=== PATIENT | female | born 2000 | race American Indian/Alaskan Native ===

== ENCOUNTER 2021-01-20 13:28 | Outpatient (CLI) | payer MEDICAID ==
[2021-01-20 14:17] LABS: Bacteria,Urine 2+ /HPF (Negative); Bilirubin,Urine NEG (Negative); Blood,Urine NEG (Negative); Color,Urine Amber (Yellow); Mucus,Urine 2+ /HPF
[2021-01-20] MEDS ORDERED: LACTATED RINGERS 1,000 ML IV ONE (14:54)
[2021-01-20 15:29] VITALS: BP 123/82
[2021-01-20] MEDS ORDERED: LIDOCAINE-MPF (1%) 10 MG/1 ML VIAL 5 ML INFILTRATI ONE (16:40)
== END 2021-01-20 16:23 | disposition home or self-care (01) ==
LOC: TRG 13:28 → APU 13:28 → TRG 16:23
PROVIDERS: ATTEND Obstetrics & Gynecology
DX: O26.893 Other specified pregnancy related conditions, third trimester (principal); R10.30 Lower abdominal pain, unspecified; O47.03 False labor before 37 completed weeks of gestation, third trimester; Z3A.33 33 weeks gestation of pregnancy
CPT/HCPCS: 59025; 81001; 87086; 96372; J0696

== ENCOUNTER 2021-03-04 22:01 | Inpatient (IN) | payer MEDICAID ==
[2021-03-04] MEDS ORDERED: fentaNYL 100 MCG/2 ML INJ IV PRN (23:41)
[2021-03-04] MEDS ORDERED: MINERAL OIL 30 ML ORAL LIQD PO PRN (23:41)
[2021-03-04] MEDS ORDERED: ONDANSETRON 4 MG/2 ML INJ IV PRN (23:41)
[2021-03-04] MEDS ORDERED: AMPICILLIN/NS 2 GM/100 ML 2 GM/100 ML BAG IV ONE (23:41)
[2021-03-04] MEDS ORDERED: NalbUPHINE 10 MG/1 ML INJ IV PRN (23:41)
[2021-03-04] MEDS ORDERED: LIDOCAINE (2%) 20 MG/1 ML VIAL 20 ML MDV INFILTRATI ONE (23:41)
[2021-03-04] MEDS ORDERED: ACETAMINOPHEN 325 MG TAB PO PRN (23:41)
[2021-03-04] MEDS ORDERED: ePHEDrine SULFATE 50 MG/1 ML INJ IV PRN (23:41)
[2021-03-04] MEDS ORDERED: TERBUTALINE 1 MG/1 ML INJ SUB-Q PRN (23:41)
[2021-03-04] MEDS ORDERED: BUTORPHANOL 2 MG/1 ML INJ IV PRN ×2 (23:41)
[2021-03-04] MEDS ORDERED: OXYTOCIN DRIP 30 UNITS/500 ML BAG IV SCH ×2 (23:45)
[2021-03-05] MEDS: LACTATED RINGERS 1,000 ML IV SCH ×2 (00:46→19:26)
[2021-03-05 00:47] LABS: Hematocrit 39.4 % (30.3-42.9); Hemoglobin 13.1 gm/dl (10.1-14.3); Mean Corpuscular HGB Conc 33 % (30-34); Mean Corpuscular Volume 91 fl (79-97); Platelet Count 273 K/mm3 (140-440); Red Blood Count 4.33 M/mm3 (3.65-5.03); Red Cell Distribution Width 16.1 % (13.2-15.2)
--- NOTE | 2021-03-05 01:41 | History and Physical Report ---
History of Present Illness Date of examination: 03/05/21 Date of admission: 03/05/21 00:15 Chief complaint: Leakage of fluid at 9pm on 03/04/21 History of present illness: at 39.1wks on 03/04/21 with care at [facility] and records not available. Pt gave history of LOF at 9pm on 03/04/21. pt admits to movement, denies vag bleed or headache. pt does not feel contractions as painful. pt states she was told that she needs abx in labor. Past History Past Medical History: no pertinent history Past Surgical History: no surgical history Social history: no significant social history - Obstetrical History Expected Date of Delivery: 03/10/21 Actual Gestation: 39 Week(s) 2 Day(s) : 1 Number of Living Children: 0 Medications and Allergies Allergies Allergy/AdvReac Type Severity Reaction Status Date / Time No Known Allergies Allergy Verified 01/20/21 13:54 Home Medications Medication Instructions Recorded Confirmed Last Taken Type Vit-Fe Fumar-FA [ 1 tab PO DAILY 03/05/21 03/05/21 03/04/21 History Vitamin] Active Meds: Active Medications Acetaminophen (Acetaminophen 325 Mg Tab) 650 mg PO Q4H PRN PRN Reason: Pain, Mild (1-3) Butorphanol Tartrate (Butorphanol 2 Mg/1 Ml Inj) 1 mg IV Q2H PRN PRN Reason: Pain, Moderate(4-6) LABOR PAIN Butorphanol Tartrate (Butorphanol 2 Mg/1 Ml Inj) 2 mg IV Q2H PRN PRN Reason: Pain , Severe (7-10) Ephedrine Sulfate (Ephedrine Sulfate 50 Mg/1 Ml Inj) 10 mg IV Q2M PRN PRN Reason: Hypotension Fentanyl (Fentanyl 100 Mcg/2 Ml Inj) 100 mcg IV Q2H PRN PRN Reason: Pain,Severe (7-10) LABOR PAIN Oxytocin/Sodium Chloride (Pitocin/Ns 30 Unit/500ml) 30 units in 500 mls @ 2 mls/hr IV TITR NAKUL; Protocol Lactated Ringer's (Lactated Ringers) 1,000 mls @ 125 mls/hr IV DIRECT NAKUL Last Admin: 03/05/21 00:46 Dose: 125 mls/hr Documented by: Oxytocin/Sodium Chloride (Pitocin/Ns 30 Unit/500ml) 30 units in 500 mls @ 40 mls/hr IV TITR NAKUL; Protocol Ampicillin Sodium (Ampicillin/Ns 1 Gm/50 Ml) 1 gm in 50 mls @ 100 mls/hr IV Q4H NAKUL; Protocol Mineral Oil (Mineral Oil 30 Ml Oral Liqd) 30 ml PO QHS PRN PRN Reason: Constipation Nalbuphine HCl (Nalbuphine 10 Mg/1 Ml Inj) 10 mg IV Q2H PRN PRN Reason: Pain, Moderate (4-6) Ondansetron HCl (Ondansetron 4 Mg/2 Ml Inj) 4 mg IV Q8H PRN PRN Reason: Nausea And Vomiting Terbutaline Sulfate (Terbutaline 1 Mg/1 Ml Inj) 0.25 mg SUB-Q ONCE PRN PRN Reason: Hyperstimulation/Hypertonicity Review of Systems All systems: negative (leakage of fluid) - Vital Signs Vital signs: Vital Signs Pulse BP 100 H 143/73 03/04/21 23:54 03/04/21 23:54 Temp Pulse Resp BP Pulse Ox 98.6 F 100 H 18 143/73 03/05/21 00:01 03/04/21 23:54 03/05/21 00:01 03/04/21 23:54 - Physical Exam Breasts: Positive: deferred Cardiovascular: Regular rate Lungs: Positive: Normal air movement Abdomen: Positive: soft Genitourinary (Female): Positive: normal external genitalia Vulva: both: normal Vagina: Positive: normal moisture Uterus: Positive: enlarged (non-tender, gravid) Extremities: Positive: normal - Obstetrical FHR: category 1 Uterine Contraction Monitor Mode: External Cervical Dilatation: 3 (not c/w with admit triage nurse) Cervical Effacement Percentage: 70 (moderate clear amniotic fluid seen grossly) station: -3 and confirmed with ultrasound to bedside Uterine Contraction Pattern: Irregular Results Result Diagrams: 03/04/21 00:26 Abnormal lab results 03/04/21 Range/Units 00:26 WBC 12.5 H (4.5-11.0) K/mm3 RDW 16.1 H (13.2-15.2) % All other labs normal. Assessment and Plan term IUP with premature ROM, GBS positive per pt report and no records available 1. Admit to labor and delivery 2. CBC, type and screen and obtain other labs 3. Amp for GBS+ per pt and no records available 4. Will augment later when records obtained or if signs of chorio 5. May have IV pain med or epidural when pt is desired All questions encouraged and answered
[2021-03-05] MEDS: AMPICILLIN/NS 1 GM/50 ML 1 GM/50 ML BAG IV SCH ×3 (04:27→18:45)
--- NOTE | 2021-03-05 11:50 | Progress Note ---
Assessment and Plan A: IUP@ 39.2 wks PROM p: Start Pitocin per protocol Continuous monitoring Pain med/Epidural prn GBS protocal (start Ampi Now) Anticipate progress Subjective - Subjective Date of service: 03/05/21 Principal diagnosis: iup@ 39.2 wks Patient reports: movement normal Objective - Vital Signs Vital Signs: Vital Signs - 12hr 03/04/21 03/05/21 03/05/21 23:54 00:01 04:00 Temperature 98.6 F 98.2 F Pulse Rate 100 H Respiratory 18 20 Rate Blood Pressure 143/73 03/05/21 03/05/21 04:22 05:54 Temperature 98.5 F Pulse Rate 97 H Respiratory 16 Rate Blood Pressure 115/60 - Exam Breasts: normal Abdomen: Present: normal appearance, soft, normal bowel sounds Vulva: both: normal Uterus: Present: normal FHR: auscultation normal, category 1 Uterine Contraction Monitor Mode: External - Labs Labs: Abnormal Labs 03/04/21 00:26 WBC 12.5 H RDW 16.1 H Laboratory Results - last 24 hr 03/04/21 03/04/21 03/04/21 00:26 00:26 00:26 WBC 12.5 H RBC 4.33 Hgb 13.1 Hct 39.4 MCV 91 MCH 30 MCHC 33 RDW 16.1 H Plt Count 273 Syphilis IgG Antibody Nonreactive Blood Type A POSITIVE Antibody Screen Negative
[2021-03-05] MEDS ORDERED: LACTATED RINGERS 250 ML IV SOLN IV ONE (20:33)
[2021-03-05] MEDS ORDERED: diphenhydrAMINE 50 MG/ML VIAL IV PRN (20:33)
[2021-03-05] MEDS ORDERED: NalbUPHINE 10 MG/1 ML INJ IV PRN (20:33)
[2021-03-05] MEDS ORDERED: ePHEDrine SULFATE 50 MG/1 ML INJ IV PRN (20:33)
[2021-03-05] MEDS ORDERED: NALOXONE 2 MG/2 ML INJ IV PRN (20:33)
[2021-03-05] MEDS ORDERED: LACTATED RINGERS 250 ML IV ONE (21:00)
[2021-03-05] MEDS ORDERED: fentaNYL-BUPIV 2 MCG/ML-0.125% 200 MCG/100 ML BAG EPIDURAL SCH (21:00)
--- NOTE | 2021-03-05 21:25 | Anesthesia Consultation ---
Anesthesia Consult and Med Hx Date of service: 03/05/21 - Airway Anesthetic Teeth Evaluation: Good ROM Head & Neck: Adequate Mental/Hyoid Distance: Adequate Mallampati Class: Class II Intubation Access Assessment: Probably Good - Pulmonary Exam CTA: Yes - Cardiac Exam Cardiac Exam: RRR - Pre-Operative Health Status ASA Pre-Surgery Classification: ASA2 Proposed Anesthetic Plan: Epidural - Pulmonary Hx Smoking: No Hx Asthma: No Hx Sleep Apnea: No - Cardiovascular System Hx Hypertension: No Hx Heart Attack/AMI: No Hx Angina: No - Central Nervous System Hx Seizures: No Hx Psychiatric Problems: No - Gastrointestinal Hx Gastroesophageal Reflux Disease: No - Endocrine Hx Renal Disease: No Hx Liver Disease: No Hx Insulin Dependent Diabetes: No Hx Non-Insulin Dependent Diabetes: No Hx Hypothyroidism: No Hx Hyperthyroidism: No - Hematic Hx Anemia: No Hx Sickle Cell Disease: No - Other Systems Hx Alcohol Use: No Hx Obesity: Yes
--- NOTE | 2021-03-05 21:25 | Progress Note ---
Labor Epidural - Labor Epidural Start Time: 21:02 Stop Time: 21:14 Performed by:: ROYAL DUNNE Procedure: Patient is requesting epidural for labor and pain. H&P, labs were reviewed. Patient IDed, H&P reviewed, all questions and concerns were answered, and consent was signed. Timeout was performed at bedside. Patient in sitting position. Sterile prep and drape was performed. 3ml of 1% lidocaine skin wheal at L[3]- L [4]. 18-gauge Tuohy epidural needle was advanced to loss of resistance with air technique 8cm. Negative CSF negative blood. Epidural catheter advanced to [14] centimeters. [negative] Aspiration [negative] test dose. Sterile dressing applied. Patient tolerated procedure.
[2021-03-06] MEDS ORDERED: oxyCODONE /ACETAMINOPHEN 5-325MG TAB PO PRN (02:19)
[2021-03-06] MEDS ORDERED: ACETAMINOPHEN 325 MG TAB PO PRN (02:19)
[2021-03-06] MEDS ORDERED: WITCH HAZEL/ GLYCERIN PAD TP PRN (02:19)
[2021-03-06] MEDS ORDERED: HYDROCORTISONE 25 MG RECTAL SUPP PR PRN (02:19)
[2021-03-06] MEDS ORDERED: LANOLIN/ZINC/DIMETHICONE (LANSINOH) 7 GM TP PRN (02:19)
[2021-03-06] MEDS ORDERED: PROMETHAZINE 25 MG RECT SUPP PR PRN (02:19)
[2021-03-06] MEDS ORDERED: diphenhydrAMINE 25 MG CAP PO PRN (02:19)
[2021-03-06] MEDS ORDERED: ONDANSETRON 4 MG/2 ML INJ IV PRN (02:19)
[2021-03-06] MEDS ORDERED: PROMETHAZINE 25 MG TAB PO PRN (02:19)
[2021-03-06] MEDS ORDERED: MAGNESIUM HYDROXIDE (MOM) ORAL LIQD UDC PO PRN (02:19)
--- NOTE | 2021-03-06 02:29 | Procedure Note ---
OB Delivery Note - Delivery Date of Delivery: 03/06/21 Surgeon: KOFI GARIBAY JR Estimated blood loss: 500cc - Vaginal Delivery presentation: vertex Delivery position: OA Intrapartum events: hemorrhage (s/p methergine x 1) Delivery induction: oxytocin Delivery augmentation: pitocin Delivery monitor: external FHT, external uterine Route of delivery: Delivery placenta: spontaneous Delivery cord: nuchal cord (x2) Episiotomy: none Delivery laceration: 2nd degree, other (bilateral periurethral) Delivery repair: vicryl Anesthesia: epidural Delivery comments: Spontaneous delivery of male with 2 degree perineal laceration and bilateral periuretheral lacerations at 0124. Nuchal cord x 2. Spontaneous delivery of placenta. Lacerations repairs with 2-0 vicryl. Fundus firm after pitocin and methergine x 1. Weight 3130g, length 20 inches. APGARS 8/9. EBL 500cc - A at 1 minute: 8 at 5 minutes: 9 Infant Gender: Male
[2021-03-06 04:58] LABS: Hematocrit 38.6 % (30.3-42.9); Hemoglobin 12.6 gm/dl (10.1-14.3); Mean Corpuscular HGB Conc 33 % (30-34); Mean Corpuscular Volume 93 fl (79-97); Platelet Count 215 K/mm3 (140-440); Red Blood Count 4.15 M/mm3 (3.65-5.03); Red Cell Distribution Width 16.2 % (13.2-15.2)
[2021-03-06] MEDS: SENNOSIDES/DOCUSATE SODIUM 8.6/50 MG TAB PO SCH ×3 (06:12→22:59)
[2021-03-06] MEDS: IBUPROFEN 600 MG TAB PO SCH ×3 (06:13→23:01)
[2021-03-06] MEDS ORDERED: PRENATAL VIT27-FE FUMARATE-FOLIC ACID VIT TAB PO SCH (10:00)
--- NOTE | 2021-03-06 10:03 | Post Anesthesia Evaluation ---
- Post Anesthesia Evaluation Patient Participated: Yes Airway Patent: Yes Stable Respiratory Function: Yes Nausea/Vomiting: No Temp > 96.8F: Yes Pain Manageable: Yes Adequeate Hydration: Yes Anesthesia Complications: No Block Receding Appropriately: Yes Patient on Ventilator: No
[2021-03-06] MEDS: DOCUSATE SODIUM 100 MG CAP PO SCH ×2 (10:06→22:59)
[2021-03-06 14:13] LABS: Hematocrit 34.5 % (30.3-42.9); Hemoglobin 11.5 gm/dl (10.1-14.3)
[2021-03-07] MEDS: IBUPROFEN 600 MG TAB PO SCH ×2 (00:20→05:27)
--- NOTE | 2021-03-07 09:17 | Progress Note ---
Assessment and Plan PPD # 1 A: S/P Covid 19 pos (Asymptomatic) p: Continue routine pp care D/C home if stable per pt request Subjective - Subjective Date of service: 03/07/21 Principal diagnosis: s/p Patient reports: appetite normal, voiding normally, pain well controlled, ambulating normally : doing well, bottle feeding Objective - Vital Signs Latest vital signs: Vital Signs Temp Pulse Resp BP Pulse Ox 03/07/21 05:27 18 03/07/21 00:00 98.2 F 86 20 128/72 100 03/06/21 23:01 20 03/06/21 16:12 98.7 F 79 18 118/76 03/06/21 14:02 18 Intake and Output 03/06/21 03/07/21 03/07/21 22:59 06:59 14:59 Intake Total 240 Output Total 600 Balance -360 Intake: Oral 240 Output: Urine 600 Void 600 Other: Total, Intake Amount 240 Total, Output Amount 600 # Voids Void 1 1 - Exam Breasts: Present: normal Abdomen: Present: normal appearance, soft, normal bowel sounds Vulva: both: normal Uterus: Present: normal, firm, fundal height below umbilicus Extremities: Present: normal Incision: Present: normal, intact
--- NOTE | 2021-03-07 09:26 | Discharge Summary ---
Providers - Providers Date of Admission: 03/05/21 00:15 Date of discharge: 03/07/21 Attending physician: BELEM PIERCE Primary care physician: BELEM PIERCE Hospitalization Reason for admission: active labor, IUP at term Delivery: Episiotomy: none Laceration: 2nd degree, other ([place] periurethral) Incision: normal, intact Other procedures: none complications: other (covid 19 pos) Discharge diagnosis: IUP at term delivered [place] baby: male Hospital course: Pt was admitted in active labor and had a w/o pp complications. See h&p, d elivery summary, and pp notes. Condition at discharge: Stable Disposition: DC-01 TO HOME OR SELFCARE Plan - Discharge Medications Prescriptions: Ibuprofen [Ibu-200] 600 mg PO Q6H #60 tablet - Provider Discharge Summary Activity: routine, no sex for 6 weeks, no heavy lifting 4 weeks, no strenuous exercise Diet: routine Instructions: routine Additional instructions: [] Smoking cessation referral if applicable(refer to patient education folder for contact #) [] Refer to [facility]'s [facility] Center Booklet Call your doctor immediately for: * Fever > 100.5 * Heavy vaginal bleeding ( >1 pad per hour) * Severe persistent headache * Shortness of breath * Reddened, hot, painful area to leg or breast * Drainage or odor from incision. * Keep incision clean and dry at all times and follow doctor's instructions regarding bathing/showering - Follow up plan Follow up: BELEM PIERCE MD [Primary Care Provider] - 6 Weeks
[2021-03-07 19:27] VITALS: BP 121/73
== END 2021-03-07 19:25 | disposition home or self-care (01) | DRG 774 ==
LOC: TRG 22:01 → APU 22:07 → LD 23:41 → TRG 23:50 → LD 03-05 00:15 → OB 03-06 04:00
PROVIDERS: ADMIT Obstetrics & Gynecology; ATTEND Obstetrics & Gynecology
PROC: 10E0XZZ Delivery of Products of Conception, External Approach (ICD-10-PCS; principal; 2021-03-06)
PROC: 0KQM0ZZ Repair Perineum Muscle, Open Approach (ICD-10-PCS; 2021-03-06)
PROC: 3E033VJ Introduction of Other Hormone into Peripheral Vein, Percutaneous Approach (ICD-10-PCS; 2021-03-06)
PROC: 3E0R3BZ Introduction of Anesthetic Agent into Spinal Canal, Percutaneous Approach (ICD-10-PCS; 2021-03-06)
PROC: 00HU33Z Insertion of Infusion Device into Spinal Canal, Percutaneous Approach (ICD-10-PCS; 2021-03-06)
DX: O98.52 Other viral diseases complicating childbirth (principal); U07.1 COVID-19; O69.81X0 Labor and delivery complicated by cord around neck, without compression, not applicable or unspecified; O42.92 Full-term premature rupture of membranes, unspecified as to length of time between rupture and onset of labor; O99.284 Endocrine, nutritional and metabolic diseases complicating childbirth; O70.1 Second degree perineal laceration during delivery; O72.1 Other immediate postpartum hemorrhage; Z3A.39 39 weeks gestation of pregnancy; Z37.0 Single live birth
CPT/HCPCS: 36415; 85014; 85018; 85027; 86592; 86850; 86900; 86901; G0378; J0290; J0595; J2590; J3010; J7120; U0003

== ENCOUNTER 2021-03-19 01:13 | Emergency (ER) | payer MEDICAID | END 2021-03-19 01:18 | disposition left against medical advice (07) | LOC: ED 01:13 | DX: O86.4 Pyrexia of unknown origin following delivery (principal); Z53.21 Procedure and treatment not carried out due to patient leaving prior to being seen by health care provider ==